=== PATIENT | male | born 1960 | race Caucasian/White ===

== ENCOUNTER 2017-03-10 09:25 | Inpatient (IN) | payer OTHER, BC ==
[2017-03-10] MEDS: CEFAZOLIN 2 GM/50 ML (PMX) 50 ML IVPB (06:00)
[~2017-03-10 09:25] MED LIST: LACTATED RINGER'S 1,000 ML IV*; ROCURONIUM 50 MG INJ
[2017-03-10] MEDS ORDERED: CEFAZOLIN 1 GM INJ ×2 (10:48→11:15)
[2017-03-10] MEDS ORDERED: HEPARIN 1000 UNITS/ML 10 ML INJ (10:49)
[2017-03-10] MEDS ORDERED: GLYCOPYRROLATE 0.4 MG INJ (11:15)
[2017-03-10] MEDS ORDERED: DEXAMETHASONE 4 MG/ML 1 ML INJ (11:15)
[2017-03-10] MEDS ORDERED: MIDAZOLAM 1 MG/ML 2 ML INJ (11:15)
[2017-03-10] MEDS ORDERED: ROCURONIUM 50 MG INJ (11:15)
[2017-03-10] MEDS ORDERED: NEOSTIGMINE 3 MG/3 ML SYRINGE (11:15)
[2017-03-10] MEDS ORDERED: PROPOFOL 20 ML (11:15)
[2017-03-10] MEDS ORDERED: ONDANSETRON 4 MG INJ (11:15)
[2017-03-10] MEDS ORDERED: EPHEDrine SULFATE 50 MG/5 ML SYG IV (12:30)
[2017-03-10] MEDS ORDERED: MIDAZOLAM 1 MG/ML 2 ML INJ IV (12:30)
[2017-03-10] MEDS ORDERED: FENTAnyl 50 MCG/ML VIAL IV ×2 (12:30)
[2017-03-10] MEDS ORDERED: ALBUTEROL 0.083% (NEB) 2.5 MG/3 ML AMP HHN (12:30)
[2017-03-10] MEDS ORDERED: HYDROmorphONE (0.2 MG/ML) 10ML SYG IV ×3 (12:30)
[2017-03-10] MEDS ORDERED: OXYCODONE/ACETAMINOPHEN (5/325) TAB PO ×2 (12:30)
[2017-03-10] MEDS ORDERED: hydrALAzine 20 MG INJ IV (12:30)
[2017-03-10] MEDS ORDERED: LABETALOL HCL 20MG INJ IV (12:30)
[2017-03-10] MEDS ORDERED: DIPHENHYDRAMINE 50 MG INJ IV (12:30)
[2017-03-10] MEDS ORDERED: IPRATROPIUM (NEB) 0.5 MG/2.5 ML AMP HHN (12:30)
[2017-03-10] MEDS ORDERED: TRIMETHOBENZAMIDE 100 MG/ML VIAL IM (12:30)
[2017-03-10] MEDS ORDERED: ALBUMIN HUMAN 5% 500 ML (12:35)
[2017-03-10] MEDS: GELATIN SIZE 100 SPONGE (12:37)
[2017-03-10] MEDS: THROMBIN 5000 UNIT VIAL (12:37)
[2017-03-10] MEDS: BUPIVACAINE 0.5%/EPI (SDV) 30 ML INJ (12:37)
[2017-03-10] MEDS: MEPERIDINE 25 MG INJ IV (14:59)
[2017-03-10] MEDS ORDERED: NACL 0.9% 3 ML SYG IV (15:00)
[2017-03-10] MEDS ORDERED: PROCHLORPERAZINE 10 MG TAB PO (15:00)
[2017-03-10] MEDS ORDERED: NALOXONE (0.4 MG/ML) INJ IV (15:00)
[2017-03-10] MEDS: FENTAnyl 50 MCG/ML VIAL IV ×2 (15:31→15:44)
[2017-03-10] MEDS: HYDROmorphONE 0.2 MG/ML PCA IV (15:42)
[2017-03-10] MEDS: ONDANSETRON 4 MG INJ IV ×3 (15:44→20:11)
[2017-03-10] MEDS: CEFAZOLIN 1 GM/50 ML (PMX) 50 ML IVPB (18:17)
[2017-03-11] MEDS: CEFAZOLIN 1 GM/50 ML (PMX) 50 ML IVPB ×3 (00:15→12:17)
[2017-03-11] MEDS: ONDANSETRON 4 MG INJ IV (04:55)
[2017-03-11] MEDS ORDERED: METHOCARBAMOL 500 MG TAB PO (09:00)
[2017-03-11] MEDS: HYDROCODONE/APAP (5/325) TAB PO ×3 (09:22→20:33)
[2017-03-11] MEDS: DOCUSATE SODIUM 100 MG CAP PO ×2 (09:22→20:28)
[2017-03-11 10:55] LABS: HEMOGLOBIN 13.8 g/dl (14.0-18.0)
[2017-03-11 11:07] LABS: ANION GAP 17 (8-16); BLOOD UREA NITROGEN 12 mg/dl (7-20); CALCIUM 8.9 mg/dl (8.4-10.2); CARBON DIOXIDE 27 mmol/L (21-31); CHLORIDE 99 mmol/L (97-110); CREATININE 0.87 mg/dl (0.61-1.24); GLUCOSE 104 mg/dl (70-220); POTASSIUM 4.3 mmol/L (3.5-5.1); SODIUM 139 mmol/L (135-144)
[2017-03-11] MEDS: MAGNESIUM HYDROXIDE 30ML CUP PO (18:25)
[2017-03-12] MEDS: ACETAMINOPHEN 325 MG TAB PO (02:08)
[2017-03-12] MEDS: BISACODYL 10 MG SUPP PR (02:10)
[2017-03-12 06:09] LABS: ADD MAN DIFF? NO
[2017-03-12 06:16] LABS: ABNORMAL IP MESSAGE 1; BASOPHILS % 0.2 % (0.0-2.0); EOSINOPHILS # 0.1 10^3/ul (0.0-0.5); EOSINOPHILS % 0.5 % (0.0-7.0); HEMATOCRIT 40.1 % (42.0-52.0); HEMOGLOBIN 13.5 g/dl (14.0-18.0); LYMPHOCYTES # 1.4 10^3/ul (0.8-2.9); LYMPHOCYTES % 11.5 % (15.0-51.0); MEAN CORPUSCULAR HEMOGLOBIN 33.3 pg (29.0-33.0); MEAN CORPUSCULAR HGB CONC 33.7 g/dl (32.0-37.0); MONOCYTE # 1.6 10^3/ul (0.3-0.9); MONOCYTES % 12.6 % (0.0-11.0); NEUTROPHIL # 9.4 10^3/ul (1.6-7.5); NEUTROPHILS % 74.8 % (39.0-77.0); PLATELET COUNT 181 10^3/UL (140-415); POSITIVE DIFF @See below; RED BLOOD COUNT 4.05 10^6/ul (4.70-6.10); RED CELL DISTRIBUTION WIDTH 12.5 % (11.5-14.5)
[2017-03-12 06:16] LABS: WHITE BLOOD COUNT 12.5 10^3/ul (4.8-10.8)
[2017-03-12 06:50] LABS: ANION GAP 12 (8-16); BLOOD UREA NITROGEN 14 mg/dl (7-20); CARBON DIOXIDE 33 mmol/L (21-31); CHLORIDE 98 mmol/L (97-110); CREATININE 0.94 mg/dl (0.61-1.24); GLUCOSE 144 mg/dl (70-220); MAGNESIUM 2.1 mg/dl (1.7-2.5); PHOSPHORUS 2.3 mg/dl (2.5-4.9); POTASSIUM 4.1 mmol/L (3.5-5.1); SODIUM 139 mmol/L (135-144)
[2017-03-12] MEDS: HYDROCODONE/APAP (5/325) TAB PO (08:28)
[2017-03-12] MEDS: DOCUSATE SODIUM 100 MG CAP PO ×2 (09:00→10:16)
== END 2017-03-12 10:35 | disposition home or self-care (01) | DRG 460 ==
LOC: REC 09:25 → MS1 16:10
PROC: 0SG00A0 Fusion of Lumbar Vertebral Joint with Interbody Fusion Device, Anterior Approach, Anterior Column, Open Approach (ICD-10-PCS; principal; 2017-03-10 11:30)
PROC: 0SB20ZZ Excision of Lumbar Vertebral Disc, Open Approach (ICD-10-PCS; 2017-03-10 11:30)
DX: M51.16 Intervertebral disc disorders with radiculopathy, lumbar region (principal); E78.5 Hyperlipidemia, unspecified; Z95.5 Presence of coronary angioplasty implant and graft; K21.9 Gastro-esophageal reflux disease without esophagitis
CPT/HCPCS: 72114; 80048; 83735; 84100; 85014; 85018; 85025; 86850; 86900; 86901; 86920; 87086; 97116; 97163; 97530